=== PATIENT | male | born 1940 | race Asian ===

== ENCOUNTER 2018-05-01 02:27 | Emergency (ER) | payer OTHER ==
[~2018-05-01] VITALS: Ht 172.7 cm; Wt 84.4 kg
[~2018-05-01 02:27] MED LIST: ALBUTEROL INHAL17 GM INH; ALEVE220 M1; ALEVE220 MG PO; AVELOX 400 MG400 M1 PO; CARVEDILOL3.125 MG PO; CEFTIN 250250 MG/52 PO; CELEXA20 MG PO; FLOMAX0.4 MG PO; GLUCOPHAGE1000 MG PO; INVOKANA100 MG PO; KEFLEX500 M1 PO; LANTUS SUBQ; LEVEMIR SUBQ; LIPITOR80 MG PO; LISINOPRIL30 MG PO; LO-DOSE ASPIRIN81 M1 PO; MOBIC7.5 M1 PO; NAPROSYN250 MG PO; NIFEDIPINE20 MG PO; NORCO 5-325 TA1 EACH PO; NORVASC10 MG PO; NOVOLOG100 UNIT/1 SQ; PANTOPRAZOLE SO40 M1 PO; RESTASIS1 EACH OPHTHALMIC; SENTRY SENIOR1 EACH PO; TRULICITY0.75 MG/0. SUBQ
[2018-05-01 02:33] VITALS: BP 149/63
[2018-05-01] MEDS ORDERED: FISH OIL 1,001000 M2 PO (02:38)
[2018-05-01] MEDS ORDERED: TESSALON PERLE100 MG PO (02:52)
[2018-05-01] MEDS ORDERED: ZPAK PO (02:52)
== END 2018-05-01 03:03 | disposition home or self-care (01) ==
LOC: ER 02:27
DX: J06.9 Acute upper respiratory infection, unspecified (principal); J20.9 Acute bronchitis, unspecified; E11.9 Type 2 diabetes mellitus without complications; I10 Essential (primary) hypertension; E78.5 Hyperlipidemia, unspecified; K21.9 Gastro-esophageal reflux disease without esophagitis; G47.30 Sleep apnea, unspecified; F32.9 Major depressive disorder, single episode, unspecified; Z87.891 Personal history of nicotine dependence; Z96.652 Presence of left artificial knee joint; Z79.4 Long term (current) use of insulin

== ENCOUNTER 2019-08-30 14:19 | Emergency (ER) | payer OTHER ==
[~2019-08-30] VITALS: Ht 172.7 cm; Wt 82.6 kg
[~2019-08-30 14:19] MED LIST changes: +FISH OIL 1,001000 M2 PO; +TESSALON PERLE100 MG PO; +ZPAK PO
[2019-08-30 15:04] LABS: ABSOLUTE NEUTROPHILS 4.7 thou/uL (1.4-8.2); BASOPHILS 0.6 % (0.0-2.0); EOSINOPHILS 4.3 % (0.0-3.0); HEMATOCRIT 44.1 % (42.0-52.0); HEMOGLOBIN 14.9 gm/dL (14.0-18.0); LYMPHOCYTES 15.8 % (24.0-44.0); MCH 30.3 pg (26.0-34.0); MCHC 33.8 g/dL (28.0-37.0); MCV 89.6 fL (80.0-100.0); MONOCYTES 10.5 % (1.0-8.0); PLATELET COUNT 230 thou/uL (150-400); POLYS 68.8 % (36.0-66.0); RBC 4.93 mil/uL (4.50-6.00); RDW 13.4 % (10.5-14.5); WBC 6.8 thou/uL (4.0-11.0)
[2019-08-30 15:12] LABS: ANION GAP 7 mmol/L (7-16); BUN 14 mg/dL (7-18); CALCIUM 9.1 mg/dL (8.5-10.1); CHLORIDE 101 mmol/L (98-107); CO2 27 mmol/L (21-32); GLUCOSE 169 mg/dL (74-106); SODIUM 135 mmol/L (136-145)
[2019-08-30 15:22] LABS: ALBUMIN 3.8 g/dL (3.4-5.0); SGOT 25 U/L (15-37); SGPT 51 U/L (30-65); TOTAL BILIRUBIN 0.8 mg/dL (<0.1-1.0); TOTAL PROTEIN 7.7 g/dL (6.4-8.2); TROPONIN-I <0.06 ng/mL (<0.06)
[2019-08-30 16:27] VITALS: BP 140/73
--- NOTE | 2019-08-31 07:52 | EKG ---
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: magdalena : 1940 Requested By: Yunior Blanco Order Number: [id number] MD: Mando Angulo Measurements Intervals [place] Rate: 69 P: 29 TX: 195 QRS: -25 QRSD: 92 T: 33 QT: 409 QTc: 438 Interpretive Statements Sinus rhythm Abnormal R-wave progression, late transition Inferior infarct, old Compared to ECG 09/15/2016 18:15:25 No significant change was found Electronically Signed On 08-31-2019 7:51:36 INJURY/SAFETY HAZARD ASSESSMENT by Mando Angulo [email or web address] <ELECTRONICALLY SIGNED> By: Mando Angulo MD, [facility] 08/31/19 0751 [id number] 142 Mando Angulo MD, [facility] /EPI
== END 2019-08-30 16:27 | disposition home or self-care (01) ==
LOC: ER 14:19
PROVIDERS: Emergency Medicine
DX: R42 Dizziness and giddiness (principal); R11.2 Nausea with vomiting, unspecified; I10 Essential (primary) hypertension; E11.9 Type 2 diabetes mellitus without complications; E78.5 Hyperlipidemia, unspecified; K21.9 Gastro-esophageal reflux disease without esophagitis; G47.30 Sleep apnea, unspecified; F32.9 Major depressive disorder, single episode, unspecified; Z96.652 Presence of left artificial knee joint; Z79.4 Long term (current) use of insulin; Z87.891 Personal history of nicotine dependence

== ENCOUNTER → 2020-03-18 | Outpatient (CLI) | payer OTHER | LOC: RAD 10:01 | DX: M43.8X6 Other specified deforming dorsopathies, lumbar region (principal); I70.0 Atherosclerosis of aorta ==

== ENCOUNTER 2021-08-13 19:16 | Inpatient (IN) | payer OTHER ==
[~2021-08-13] VITALS: Ht 152.4 cm; Wt 84.4 kg
--- NOTE | ~2021-08-13 | EMS ---
[address] [address] EMS Patient Care Report Name: ROLLY FRANCO Room #: REG CIERA Nguyen#: [id number] Admission: 08/13/21 Attend Phys: Discharge: Date of : 42 Report #: [id number] THIS REPORT FOR: //name// Report Transmitted: 08/13/2021 18:50 EMS Care Summary [facility] MED-ACT Incident [id number] @ 08/13/2021 18:30 Incident Location [address] [place] [address] Patient ROLLY FRANCO Male, 80 Years 1940 Patient Address [address] [place] [address] Patient History Hypertension (HTN),Cardiac Condition - Other, Patient Allergies No known allergies, Patient Medications Amlodipine, Metformin, Aspirin, Carvedilol, Buspirone, Novolog, Chief Complaint Weakness Disposition Transported No Lights/[place] Reason Falls Transported To [facility] Narrative Patient was found standing upright in kitchen area of home with rehab care assistant at side. Patient is awake, alert and oriented upon arrival and in no acute distress. Patients rehab care assistant reported to EMS that he came to live at his residence about 2 months prior, but over the last week or so he has noted that [address] [address] EMS Patient Care Report Name: ROLLY FRANCO JR Room #: REG CIERA Nguyen#: [id number] Admission: 08/13/21 Attend Phys: Discharge: Date of : 42 Report #: [id number] the patient has had some increased weakness. programmer engineering and scientific explained that he would find the patient sitting on the floor on occasion and he would need assistance getting up. Patient sits down onto chair at kitchen table so EMS could perform an assessment. Patient does agree with story, and reported that he has had two instances today where he had to sit down onto the floor because he felt weak. Patient does deny that he is suffering a fall, but that his body becomes weak, so he uses his cane to lower himself onto the floor so he doesn't fall. Patient denies any injury or complaint of pain to EMS. Patient initially denies any other complaints to EMS as well. Patient does report that he was taken by ambulance on August 10, but was taken to [facility]. When offered transport today, patient requested [place] as destination of choice due to having prior care there before. Patient denies any complaint of chest pain, nausea, dizziness, blurred vision, or recent fever. Patient was moved to front door while siting on chair, patient was then able to stand up and pivot sit onto cot. Patient was secured and moved to ambulance for further exam and transport. IV was established prior to transport and the 12 lead EKG was completed inside of home. Transport initiated to [place]. Patient rested comfortably for most of duration. During transport, patient does report that he has had a cough for the last several weeks, but did not disclose in initial exam and assessment. Patient has no other changes or other complaints during transport. Upon arrival at ED, patient was taken to ED hallway bed outside of room 7. Verbal report and patient care was given to ED RN at bedside. Patient was moved onto ED bed via sheet lift. Initial Vitals @18:41P: 76,SpO2: 95, @18:53P: 79,R: 18,BP: 147/71,Pain: 0/10,SpO2: 96, @19:04P: 75,R: 20,BP: 148/64,GCS: 15,SpO2: 94,Revised Trauma: 12, @18:37P: 90,R: 18,BP: 152/66,GCS: 15,Temp: 98.4F,Glucose: 396,SpO2: 95,Revised Trauma: 12, Impression Generalized Weakness Procedures @18:52 IV Therapy - Saline Lock 8cc (20 ga) Site: Antecubital-Right Response: UnchangedSucceeded @18:53 Surgical Mask on Patient Response: Unchanged @18:41 12-Lead ECG Response: UnchangedSucceeded Timeline 18:28,Call Received 18:28,Psap Call [address] [address] EMS Patient Care Report Name: ROLLY FRANCO Room #: REG Patrick#: [id number] Admission: 08/13/21 Attend Phys: Discharge: Date of : 42 Report #: [id number] 18:30,Dispatched 18:30,En Route 18:33,On Scene 18:36,At Patient 18:37,BP: 152/66 M,PULSE: 90,RR: 18 R,SPO2: 95 Ox,ETCO2: ,B,PAIN: ,GCS: 15, 18:41,12-Lead ECG,Response: UnchangedSucceeded, 18:41,BP: / M,PULSE: 76,RR: R,SPO2: 95 Ox,ETCO2: ,BG: ,PAIN: ,GCS: , 18:52,IV Therapy - Saline Lock 8cc 20 ga Site: Antecubital-Right,Response: UnchangedSucceeded, 18:53,Surgical Mask on Patient,Response: Unchanged 18:53,BP: 147/71 M,PULSE: 79,RR: 18 R,SPO2: 96 Ox,ETCO2: ,BG: ,PAIN: 0,GCS: , 18:54,Depart Scene 19:04,BP: 148/64 M,PULSE: 75,RR: 20 R,SPO2: 94 Ox,ETCO2: ,BG: ,PAIN: ,GCS: 15, 19:11,At Destination 19:34,Call Closed Disclaimer v1.1 Copyright 2021 [employer] This EMS Care Summary contains data elements from the applicable legal record (which may be displayed differently). It is designed to provide pertinent information for the following purposes: continuity of care, clinical quality, and state data reporting. The complete legal record is available to ED staff and administrators of the receiving hospital in ES's Patient Tracker. All data is provided "as is."
[2021-08-13 19:17] VITALS: BP 151/70
[2021-08-13 20:18] LABS: ABSOLUTE NEUTROPHILS 6.3 thou/uL (1.4-8.2); BASOPHILS 0.1 % (0.0-2.0); HEMATOCRIT 37.1 % (42.0-52.0); HEMOGLOBIN 13.1 gm/dL (14.0-18.0); LYMPHOCYTES 8.8 % (24.0-44.0); MCH 30.8 pg (26.0-34.0); MCHC 35.3 g/dL (28.0-37.0); PLATELET COUNT 141 thou/uL (150-400); POLYS 81.1 % (36.0-66.0); RBC 4.26 mil/uL (4.50-6.00); RDW 12.9 % (10.5-14.5); WBC 7.8 thou/uL (4.0-11.0)
[2021-08-13 20:26] LABS: APTT 35.1 Seconds (24.5-32.8); INR 0.99; PROTIME 10.8 Seconds (10.5-12.1)
[2021-08-13 20:36] LABS: CALCIUM 8.2 mg/dL (8.5-10.1); CREATININE 1.4 mg/dL (0.7-1.3); POTASSIUM 3.1 mmol/L (3.5-5.1)
[2021-08-13 20:37] LABS: URINE BILIRUBIN NEGATIVE (Negative); URINE BLOOD 2+ (Negative); URINE CLARITY CLEAR; URINE COLOR YELLOW; URINE GLUCOSE-RANDOM* 3+ (Negative); URINE KETONES NEGATIVE (Negative); URINE LEUKOCYTES-REFLEX NEGATIVE (Negative); URINE NITRITE-REFLEX NEGATIVE (Negative); URINE PROTEIN (DIPSTICK) 2+ (Negative); URINE UROBILINOGEN 0.2 E.U./dl (0.2-1.0)
[2021-08-13 20:46] LABS: ALBUMIN 3.1 g/dL (3.4-5.0); TOTAL BILIRUBIN 0.9 mg/dL (0.2-1.0); TOTAL PROTEIN 7.2 g/dL (6.4-8.2)
[2021-08-13 21:00] LABS: BACTERIA-REFLEX None Seen /HPF (None Seen); CASTS None Seen /LPF (None Seen); CRYSTALS None Seen /LPF (None Seen); SQUAMOUS None Seen /LPF (0-3); URINE RBC None Seen /HPF (NONE SEEN); URINE WBC-REFLEX 0-5 Rare /HPF (0-5)
[2021-08-13 22:29] LABS: CALCIUM 7.4 mg/dL (8.5-10.1); CREATININE 1.2 mg/dL (0.7-1.3); POTASSIUM 3.2 mmol/L (3.5-5.1)
[2021-08-13] MEDS ORDERED: ATORVASTATIN CA80 MG PO (23:41)
[2021-08-13] MEDS ORDERED: BUSPIRONE HCL7.5 MG PO (23:41)
[2021-08-13] MEDS ORDERED: LEVEMIR FL100 UNIT/2 SUBQ (23:42)
[2021-08-13] MEDS ORDERED: CITALOPRAM HBR40 MG PO (23:44)
[2021-08-13] MEDS ORDERED: LOSARTAN-HCTZ1 EAC3 PO (23:45)
[2021-08-14] MEDS ORDERED: FLOMAX0.4 MG PO (00:03)
[2021-08-14] MEDS ORDERED: TRULICITY1.5 MG/0.5 SUBQ (00:04)
[2021-08-14] MEDS ORDERED: OSTEO BI-FLEX1 EAC2 PO (00:04)
[2021-08-14] MEDS ORDERED: DAILY VALUE1 EAC1 PO (00:04)
[2021-08-14] MEDS ORDERED: NOVOLOG FL100 UNIT/M SUBQ (00:05)
--- NOTE | 2021-08-14 00:06 | NUR ---
Pt is alert and oriented x 4. Reports he has been weak over the last few days. Reports he has had multiple falls recently. Patient has a minor cough. SpO2 is WNL on room air. Patient does not appear to be in any apparent distress. No nausea and vomiting.
--- NOTE | 2021-08-14 07:40 | EKG ---
[address] [address] ELECTROCARDIOGRAM REPORT Name: PASQUALE FRANCOETO Cynthia Room #: 170-7 ADM IN M.R.#: [id number] Admission: 08/13/21 Attend Phys: Cari Wilde MD Discharge: Date of : 42 Report #: [id number] [facility] ED Test Date: 2021-08-13 Test Time: 19:43:46 Pat Name: ROLLY FRANCO Department: Room: 170 Gender: M Mother'S Helper: marysol : 1940 Requested By: Kulwinder Drew Order Number: [id number] MD: Kar Nguyen Measurements Intervals [place] Rate: 75 P: 34 MD: 194 QRS: -18 QRSD: 94 T: 31 QT: 409 QTc: 457 Interpretive Statements Sinus rhythm Inferior infarct, old Compared to ECG 08/30/2019 14:22:52 No significant changes Electronically Signed On 08-14-2021 7:39:58 JOB ORDER CLERK by Kar Nguyen [email or web address] <ELECTRONICALLY SIGNED> By: Kar Nguyen MD, [facility] 08/14/21 0739 42 42 Kar Nguyen MD, FACC /EPI
[2021-08-14 10:22] VITALS: BP 135/60
[2021-08-14 19:30] VITALS: BP 131/67
--- NOTE | 2021-08-15 07:05 | NUR ---
Received patient report from ABIODUN Padilla
[2021-08-15 07:54] LABS: ALBUMIN 2.5 g/dL (3.4-5.0); CALCIUM 7.6 mg/dL (8.5-10.1); DIRECT BILIRUBIN 0.2 mg/dL (<0.1-0.2); PHOSPHORUS 2.6 mg/dL (2.6-4.7); POTASSIUM 3.2 mmol/L (3.5-5.1); TOTAL BILIRUBIN 0.6 mg/dL (0.2-1.0); TOTAL PROTEIN 6.5 g/dL (6.4-8.2)
--- NOTE | 2021-08-15 08:01 | HC ---
[facility] [address] CONSULTATION Name: ROLLY FRANCO JR Room #: 170-7 ADM IN M.R.#: [id number] Admission: 08/13/21 Attend Phys: Za Umaña Discharge: Date of : 42 Report #: [id number] THIS REPORT FOR: cc: Yadi Smiley MD, Melanie MD Barry,Azeem Cardozo MD ~ DATE OF SERVICE: 08/14/2021 INFECTIOUS DISEASE CONSULTATION ATTENDING PHYSICIAN: Dr. Wilde. REASON FOR EVALUATION: COVID-19 infection, complicated by pneumonitis, respiratory failure. HISTORY OF PRESENT ILLNESS: Chart reviewed. The patient examined. This is a 80-year-old gentleman with diabetes mellitus, obstructive sleep apnea, who presented to the Emergency Room with complaints of fevers with chills, generalized malaise, also had a cough with progressive dyspnea. Testing confirmed positive COVID-19 infection. Chest x-ray showed mild bibasilar infiltrates and a markedly elevated blood sugar of 389. Lactic acid of 2.4. Procalcitonin 0.13. Blood cultures collected at time of admission were sterile thus far. Due to his hypoxia, he is maintained on 3 liters per nasal cannula. He complains of initially hip pain then he said buttock pain. It is still unclear. He has got some mild nausea as well, has been empirically started on therapy with azithromycin and ceftriaxone as well as corticosteroids. ALLERGIES: None known. CURRENT MEDICATIONS: Include insulin subQ, atorvastatin, furosemide, losartan, azithromycin, ceftriaxone, buspirone, citalopram, amlodipine, carvedilol, tamsulosin, dexamethasone, zinc, ascorbic acid. PAST MEDICAL HISTORY: Above noted diabetes mellitus type 2, history of hypertension, high cholesterol. SOCIAL HISTORY: Nonsmoker, no ethanol, no illicit drug use. FAMILY HISTORY: Noncontributory. REVIEW OF SYSTEMS: As noted above. PHYSICAL EXAMINATION: GENERAL: He appears ill. He is in moderate distress, somewhat of a language barrier. He is obese. VITAL SIGNS: Temperature 101.9, pulse 91, respirations 25, blood pressure [facility] [address] [place] [address] CONSULTATION Name: ROLLY FRANCO Room #: 170-7 [facility] IN [facility]#: [id number] Admission: 08/13/21 Attend Phys: Za Umaña Discharge: Date of : 42 Report #: [id number] 135/60. SKIN: Warm, dry, no rashes. HEENT: Nasal cannula in place. Extraocular muscles intact. NECK: Supple. LUNGS: Overall diminished, few scattered coarse breath sounds. HEART: Distant, appears somewhat irregular. I do not appreciate a murmur. ABDOMEN: Obese, firm. No peritoneal signs. GENITOURINARY AND RECTAL: Deferred. LABORATORY DATA: Sed rate of 55. Ferritin of 845. Most recent glucose of 258. Blood cultures sterile thus far. Lactic acid on repeat was 1.9. Electrolytes: Sodium 133, potassium 3.2, chloride 100, bicarbonate is 20, anion gap of 13, BUN and creatinine 20 and 1.2. Estimated GFR 58. CRP of 156.9. Urinalysis, 0-5 white cells. Coronavirus testing was positive. ASSESSMENT AND PLAN: COVID-19 infection, complicated by pneumonitis and respiratory failure, in setting of diabetes mellitus, it is difficult to ascertain how brittle it is. We will continue empiric therapy certainly exacerbation with hyperglycemia may be an issue with corticosteroids. We will add remdesivir and baricitinib to the regimen. He remains quite tenuous at this point, it is difficult to ascertain, he may well worsen clinically. <ELECTRONICALLY SIGNED> By: Azeem Treviño MD 08/15/21 0801 1003 1150 Azeem Treviño MD /nt
--- NOTE | 2021-08-15 10:00 | NUR ---
Pt resting, watching TV. GCS15. denies needs. VSS. call light within reach. Nontoxic in appearance, stable.
--- NOTE | 2021-08-15 12:45 | NUR ---
Provider paged due to indication of notifying provider of BG over 400.
[2021-08-15 13:56] VITALS: BP 121/64
--- NOTE | 2021-08-15 14:10 | NUR ---
Provider paged due to indication to notify provider of BG over 400.
--- NOTE | 2021-08-15 14:54 | NUR ---
PT ADMITTED RELATED TO COVID AND WEAKNESS. CM REVIEWED CHART AND SPOKE WITH CARE TEAM. CM ATTEMPTED PC TO PT AT NUMBER LISTED ON FACE SHEET WITH NO SUCCESS. CM CALLED AND ATTEMTPED TO LEAVE VM FOR SON CHARISSE BUT VM WAS FULL. CM CALLED EX- GA AT AND LEFT VM. CM CALLED SON ANTONIETTA AT AND LEFT VM. CHART INDICATED THAT PT HAD BEEN STAYING WITH A FRIEND PRIOR TO ADMISSION AND HE FEARS TAHT HE CAN'T RETURN TO FRIEND'S HE IS COVID POSITIVE. OT SAW PT THIS DAY AND HE EXPRESSED THAT HE IS DABILITATED AND WAS AFRAID TO STAND EOB.. IT WAS INDICATED IN OT NOTE THAT PT MAY HAVE COME HERE FROM [place] TO SEE FAMILY. PT IS IN CEFTRIAXONE AND AZITROMYCIN WELL REMDISIVIR AND STEROIDS. PT IS ON 3L O2. CM ATTEMPTING TO SPEAK WITH PT AND FAMILY FOR INFO ON PLOF TO ASSIST WITH POSSIBLE DC NEEDS.
--- NOTE | 2021-08-15 15:00 | NUR ---
Pt denies needs, pt denies pain, GCS15. Calm and cooperative.
--- NOTE | 2021-08-15 16:30 | NUR ---
Pt GCS15, no needs, no complaints. Call light within reach. VSS.
--- NOTE | 2021-08-15 18:00 | NUR ---
pt report given to ABIODUN gruber
[2021-08-15 20:06] VITALS: BP 126/71
[2021-08-15 21:58] LABS: HEMATOCRIT 39.1 % (42.0-52.0); HEMOGLOBIN 13.1 gm/dL (14.0-18.0); MCH 30.3 pg (26.0-34.0); MCHC 33.7 g/dL (28.0-37.0); MCV 89.9 fL (80.0-100.0); RBC 4.34 mil/uL (4.50-6.00); RDW 13.6 % (10.5-14.5); WBC 7.2 thou/uL (4.0-11.0)
[2021-08-15 22:04] LABS: CALCIUM 7.4 mg/dL (8.5-10.1); CREATININE 1.1 mg/dL (0.7-1.3); MAGNESIUM 1.7 mg/dL (1.8-2.4); POTASSIUM 3.4 mmol/L (3.5-5.1)
[2021-08-16 05:07] LABS: ALBUMIN 2.5 g/dL (3.4-5.0); CALCIUM 7.6 mg/dL (8.5-10.1); CREATININE 1.2 mg/dL (0.7-1.3); DIRECT BILIRUBIN 0.1 mg/dL (<0.1-0.2); PHOSPHORUS 2.8 mg/dL (2.5-4.9); TOTAL BILIRUBIN 0.5 mg/dL (0.2-1.0); TOTAL PROTEIN 6.7 g/dL (6.4-8.2)
--- NOTE | 2021-08-16 07:29 | NUR ---
admit pt admitted to room 359 with covid a/o x4 vss, oriented to room call light system and poc. accuchecks with ssi on 1 to 2 liters o2 prn. lungs diminished. voiding qs usses call light appropriately continue poc.
[2021-08-16 09:18] VITALS: BP 125/62
--- NOTE | 2021-08-16 16:06 | NUR ---
CM ATTEMPTED PTTO PT'S CELL AND ROOM PHONE THIS AFTERNOON WITH NO ANSWER. OT HAD SEEN PT OF THIS NOTE AND WERE RECOMMENDING POST ACUTE CARE STAY. AWAITING PT EVAL. CM HAD PROVIDED PT WITH [employer] SNF LIST FOR REVIEW YESTERDAY. CM TO CONTINUE TO FOLLOW UP WITH PT TO SEE IF/WHERE HE MAY WANT REFERRALS SENT FOR SHORT TERM POST ACUTE REHAB STAY. [facility] MAY BE AN OPTION. CM FOLLOWING.
[2021-08-16 16:28] VITALS: BP 117/62
[2021-08-16 20:00] VITALS: BP 123/66
--- NOTE | 2021-08-17 05:19 | NUR ---
patient alert and oriented. patient is on 1l of oxygen no soa or distress noted this shift. fluid emcouraged.fall precaution in place. patient in bed asleep at this time breathing regular and unlaboured.
[2021-08-17 05:52] VITALS: BP 130/67
[2021-08-17 05:58] LABS: HEMATOCRIT 39.7 % (42.0-52.0); HEMOGLOBIN 13.5 gm/dL (14.0-18.0); MCH 30.4 pg (26.0-34.0); MCHC 34.1 g/dL (28.0-37.0); MCV 89.2 fL (80.0-100.0); RBC 4.46 mil/uL (4.50-6.00); RDW 13.3 % (10.5-14.5); WBC 9.5 thou/uL (4.0-11.0)
[2021-08-17 06:19] LABS: ALBUMIN 2.6 g/dL (3.4-5.0); CALCIUM 7.5 mg/dL (8.5-10.1); CREATININE 1.1 mg/dL (0.7-1.3); DIRECT BILIRUBIN 0.2 mg/dL (<0.1-0.2); MAGNESIUM 1.9 mg/dL (1.8-2.4); PHOSPHORUS 3.3 mg/dL (2.6-4.7); POTASSIUM 3.4 mmol/L (3.5-5.1); TOTAL BILIRUBIN 1.2 mg/dL (0.2-1.0); TOTAL PROTEIN 6.5 g/dL (6.4-8.2)
[2021-08-17 08:35] VITALS: BP 131/63
--- NOTE | 2021-08-17 15:08 | NUR ---
CM REVIEWED CHART AND SPOKE WITH CARE TEAM. CM ONCE AGAIN ATTEMTPED NUMEROUS PHONE CALLS TO PT'S ROOM PHONE AND FUNCTIONING PERSONAL CELL WITH NO ANSWER. CM ATTEMPTED TO SPEAK WITH PT ABOUT WHERE HE WANTS REFERRALS SENT FOR POSSIBLE SHORT TERM SKILLED REHAB STAY. CM TO CONTINUE TO ATTEMPT TO CONTACT.
--- NOTE | 2021-08-17 16:07 | NUR ---
did several hold acknowleges, and called pharmacy for 0900 baricininib; pharmacy finally brought medication up at 1530; 6.5 hours after medication was due.
[2021-08-17 17:05] VITALS: BP 150/77
[2021-08-17 19:31] VITALS: BP 128/68
--- NOTE | 2021-08-18 03:53 | NUR ---
PT IS A/O X4 AND IS UP WITH ASSISTANCE. MEDICATIONS GIVEN PER MAR. DENIES C/O PAIN OR DISCOMFORT. VOIDS PER URINAL WITH ASSISTANCE. FALL PRECUATIONS IN PLACE, CALL LIGHT IS WITHIN REACH. CURRENTLY ON 1 LITER PER NC. PT CALLS OUT APPROPRIATELY FOR ASSISTANCE. HS BS ELEVATED. INSULIN GIVEN DIRECTED.
[2021-08-18 04:04] LABS: ALBUMIN 2.6 g/dL (3.4-5.0); CALCIUM 7.4 mg/dL (8.5-10.1); DIRECT BILIRUBIN 0.2 mg/dL (<0.1-0.2); PHOSPHORUS 3.2 mg/dL (2.5-4.9); POTASSIUM 3.4 mmol/L (3.5-5.1); TOTAL BILIRUBIN 0.5 mg/dL (0.2-1.0); TOTAL PROTEIN 5.9 g/dL (6.4-8.2)
[2021-08-18 07:49] VITALS: BP 146/82
--- NOTE | 2021-08-18 12:21 | NUR ---
LUCAS SPOKE WITH PT THIS AM. HE WAS INTERESTED IN REFERRAL BEING SENT TO [facility] FOR REVIEW FOR POSSIBLE ADMISSION. CM FAXED REFERRAL AND NOTIFIED LIAISON AND ADMISSIONS. CM FOLLOWING. CARE TEAM INDICATED PT IS MEDICALLY STABLE FOR DC. [facility] INDICATED THEY MAY HAVE A BED TOMORROW.
--- NOTE | 2021-08-19 01:54 | NUR ---
PT IS A/O X4 AND IS UP WITH ASSISTANCE. RA. VSS. AFEBRILE. MEDICATIONS GIVEN PER MAR. ON 1 LITER O2 PER NC. CALLS OUT APPROPRIATELY FOR ASSISTANCE. FALL PRECUATIONS IN PLACE,CALL LIGHT IS WITHIN REACH. PT IS PROGRESSING TOWARDS PLAN OF CARE DC GOALS.
[2021-08-19 07:48] VITALS: BP 128/68
[2021-08-19 10:43] VITALS: BP 128/68
[2021-08-19 12:32] VITALS: BP 118/60
--- NOTE | 2021-08-19 13:38 | NUR ---
PT STATES HE WANTS TO GO TO [facility] AFTER DISCHARGE
[2021-08-19 15:33] VITALS: BP 124/70
[2021-08-19 20:09] VITALS: BP 139/65
--- NOTE | 2021-08-20 02:06 | NUR ---
PT HS BS ELEVATED 327. INSULIN GIVEN DIRECTED. DENIES C/O PAIN OR DISCOMFORT. CONTINUES WITH 1 LITER O2 PER NC. VSS. AFEBRILE. FALL PRECAUTIONS IN PLACE, CALL LIGHT IS WITHIN REACH.
[2021-08-20 08:07] VITALS: BP 127/70
[2021-08-20 12:25] VITALS: BP 127/70
[2021-08-20 16:13] VITALS: BP 129/68
--- NOTE | 2021-08-20 18:22 | NUR ---
PT BS REMAINS HIGH PAGED DR MUNGUIA ORDERS TO INCREASE AM LANTUS TO 20UNITS AND CONTINUE WITH S/S.
[2021-08-20 20:50] VITALS: BP 142/69
--- NOTE | 2021-08-21 01:28 | NUR ---
PT ALERT AND ORIENTED X4. VSS AFEBRILE. UNLABORED ON 1LNC. PT HAS NO C/OPAIN. NO S/S SOA PRESENTLY, PT IS RESTING QUIETLY. BED DOWN. CALL LIGHT IN REACH.
[2021-08-21 04:48] VITALS: BP 128/68
--- NOTE | 2021-08-21 07:36 | NUR ---
PT PROGRESSING WELL TOWARDS D/C GOALS. VSS AFEBRILE. NO S/S DISTRESS.97% ON 1LNC.
[2021-08-21 08:13] VITALS: BP 146/79
[2021-08-21] MEDS ORDERED: CEFDINIR300 MG PO (10:24)
[2021-08-21] MEDS ORDERED: ZINC SULFATE50 MG PO (10:25)
[2021-08-21] MEDS ORDERED: PROTONIX 20 MG20 M1 PO (10:26)
[2021-08-21] MEDS ORDERED: VITAMIN D325 MC2 PO (10:26)
--- NOTE | 2021-08-21 11:40 | NUR ---
CM FOLLOWED UP WITH ADMISSIONS AT [facility] THIS AM. THEY INDICATED THEY CAN ACCEPT PT ONCE OUT OF ISO AND A COVID BED BECOMES OPEN. THEY ARE ABLE TO ACCEPT PT ON DAY LONG THEY ARE SIGN AND SYMPTOM FREE. CM NOTIFIED HOSPITALIST. CM FOLLOWING.
[2021-08-21 11:58] VITALS: BP 138/76
--- NOTE | 2021-08-21 15:51 | NUR ---
Pt assessed for LOS. Dx covid with ARF, on 1 L O2. PMH: DMII, HTN, HLD. Noted with hyperglycemia worsened by steroid treatment. Meds and labs reviewed. Intakes has been 100% on carb control diet since admit. 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 BM 08/20. Low nutrition risk.
[2021-08-21 16:30] VITALS: BP 127/66
[2021-08-21 19:40] VITALS: BP 124/67
--- NOTE | 2021-08-22 04:00 | NUR ---
PT IN NO DISTRESS. ON .USING URINAL. UP AD MANISH IN ROOM. REPORTS HE FEELS ALOT BETTER.
[2021-08-22 07:25] VITALS: BP 154/80
[2021-08-22 12:00] VITALS: BP 145/69
--- NOTE | 2021-08-22 12:20 | NUR ---
LUCAS FOLLOWED UP WITH FAREED IN ADMISSIONS AT [facility] THIS DAY. THEY INDICATED THAT THEY SHOULD BE ABLE TO ACCEPT PT THIS COMING Saturday08/24/21. LUCAS HAD NOTIFIED CRE TEAM OF THIS. CM FOLLOWING.
--- NOTE | 2021-08-22 16:41 | NUR ---
Assumed pt care this am, vs stable, on 1 liter of O2 via NC. Blood sugar checks done and medication given as per emar. Pt was able to work with PT , min assists. POC followed with no signs or verbalizations of distress noted. Awaiting placement at [facility], potential date is 08/24.
[2021-08-22 17:00] VITALS: BP 141/64
[2021-08-22 20:00] VITALS: BP 127/69
--- NOTE | 2021-08-23 03:12 | NUR ---
PT IS ALERT AND ORIENTED. VERY PLEASANT. CONVERSATIONAL AND CRACKING JOKES. DENIES PAIN.ON /. PT DENIES ANY SOA.USING URINAL.AFEBRILE.WAITING D/C ON .
[2021-08-23 04:30] VITALS: BP 138/69
[2021-08-23 08:59] VITALS: BP 146/83
--- NOTE | 2021-08-23 14:20 | NUR ---
CM CALLED AND SPOKE WITH PT OVER ROOM PHONE THIS DAY. PT AWARE THAT [facility]ING OF HIM FOR SHORT TERM SKILLED REHAB WITH POTENTIAL TRANSITION TO LTC WITH [place] MEDICAID. CM NOTIFIED WE ANTIAPTED DC TOMORROW Saturday08/24/21. PT EXPRESSED UNDERSTANDING. CM TO FOLLOW UP WITH FACILITY AND PT TOMORROW TO FACILITATE DC.
[2021-08-23 17:14] VITALS: BP 123/67
--- NOTE | 2021-08-24 02:00 | NUR ---
pt is ecpecting to discharge today to [facility]. he is cooperative and friendly. no problems or concerns voiced regarding discharge. he is taking adequate po uses walker with assist when out of bed, calls for help out of bed. using urinal in bed tonight.
[2021-08-24 05:28] VITALS: BP 154/77
[2021-08-24 07:29] VITALS: BP 134/75
[2021-08-24 12:11] VITALS: BP 118/69
--- NOTE | 2021-08-24 14:54 | NUR ---
CARE TEAM INDICATED THAT PT IS MEDICALLY STABLE TO DISCHARGE THIS DAY. PT HAD BEEN ACCEPTED AT [facility] SKILLED WITH PROBABLE TRANSITION TO LTC. CM FAXED ORDERS TO [facility]. CHART COPY MADE. TRANSPORT ARRANGED VIA AT 1600. NURSE GIVEN NUMBER FOR [facility]. PT DOESN'T HAVE ANY FAMILY TO NOTIFY OF DC. PT IS AWARE AND AGREEABLE. NO OTHER CM INTERVNETION INDICATED. CASE CLOSED.
--- NOTE | 2021-08-24 17:18 | NUR ---
PT ALERT AND ORIENTED X4, DENIES ANY PAIN, NAUSEA AND VOMITTING. ON ROOM AIR, USES URINAL AND UP WITH A WALKER 1620 PT DISCHARGE TO [facility]. IV AND TELE D/C. CALLED [facility] A COUPLE OF TIMES TO GIVE REPORT, NO ANSWER. WILL TRY AGAIN
--- NOTE | 2021-08-24 18:07 | NUR ---
called [facility] again to given report, this nurse was put on hold for a while. gave number for nurse to call back.
== END 2021-08-24 16:20 | DRG 177 ==
LOC: ER 19:16 → EROBS 21:16 → 4W 21:16
PROVIDERS: Emergency Medicine; Internal Medicine; Nurse Practitioner Family; Specialist; ADMIT Hospitalist; ATTEND Hospitalist
PROC: XW0DXM6 Introduction of Baricitinib into Mouth and Pharynx, External Approach, New Technology Group 6 (ICD-10-PCS; 2021-08-14)
PROC: XW033E5 Introduction of Remdesivir Anti-infective into Peripheral Vein, Percutaneous Approach, New Technology Group 5 (ICD-10-PCS; 2021-08-14)
PROC: 5A09357 Assistance with Respiratory Ventilation, Less than 24 Consecutive Hours, Continuous Positive Airway Pressure (ICD-10-PCS; principal; 2021-08-15)
DX: U07.1 COVID-19 (principal); J96.01 Acute respiratory failure with hypoxia; J12.82 Pneumonia due to coronavirus disease 2019; N17.0 Acute kidney failure with tubular necrosis; D69.6 Thrombocytopenia, unspecified; R29.6 Repeated falls; E87.6 Hypokalemia; I10 Essential (primary) hypertension; E78.5 Hyperlipidemia, unspecified; E11.65 Type 2 diabetes mellitus with hyperglycemia; K21.9 Gastro-esophageal reflux disease without esophagitis; E66.9 Obesity, unspecified; G47.33 Obstructive sleep apnea (adult) (pediatric); F41.9 Anxiety disorder, unspecified; E78.00 Pure hypercholesterolemia, unspecified; N40.0 Benign prostatic hyperplasia without lower urinary tract symptoms; F32.A Depression, unspecified; Z96.653 Presence of artificial knee joint, bilateral; Z98.42 Cataract extraction status, left eye; Z98.41 Cataract extraction status, right eye; Z79.899 Other long term (current) drug therapy; Z79.84 Long term (current) use of oral hypoglycemic drugs; Z79.4 Long term (current) use of insulin; Z87.891 Personal history of nicotine dependence; Z80.3 Family history of malignant neoplasm of breast; Z99.81 Dependence on supplemental oxygen; Z59.00 Homelessness unspecified; Z68.36 Body mass index [BMI] 36.0-36.9, adult
CPT/HCPCS: 10040; 10045